=== PATIENT | female | born 2000 | race Caucasian/White ===

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

== ENCOUNTER → 2023-06-11 09:30 | Outpatient (BNVA) | payer OTHER, BC, SELFPAY | PROVIDERS: PCP Nurse Practitioner; Visit Provider Nurse Practitioner Family | DX: R39.9 Unspecified symptoms and signs involving the genitourinary system (principal); E66.01 Morbid (severe) obesity due to excess calories; Z68.54 Body mass index [BMI] pediatric, 95th percentile for age to less than 120% of the 95th percentile for age; Z11.3 Encounter for screening for infections with a predominantly sexual mode of transmission; Z13.6 Encounter for screening for cardiovascular disorders | CPT/HCPCS: 80053; 80061; 81000; 84443; 85025; 86592; 87491; 87591; 87661; 87806 ==

== ENCOUNTER → 2024-04-11 10:36 | Outpatient (BNVA) | payer OTHER, BC, MEDICAID, SELFPAY | PROVIDERS: PCP Nurse Practitioner Family; Visit Provider Nurse Practitioner Family | DX: R05.9 Cough, unspecified (principal); R07.0 Pain in throat | CPT/HCPCS: 87071; 87400; 87880 ==

== ENCOUNTER → 2024-09-22 12:53 | Outpatient (BNVA) | payer OTHER, BC, MEDICAID, SELFPAY | PROVIDERS: PCP Nurse Practitioner Family; Visit Provider Nurse Practitioner Family | DX: R30.0 Dysuria (principal); N39.0 Urinary tract infection, site not specified | CPT/HCPCS: 81000; 81003; 87086 ==

== ENCOUNTER → 2024-10-21 13:32 | Outpatient (BNVA) | payer OTHER, BC, MEDICAID, SELFPAY | PROVIDERS: PCP Nurse Practitioner Family; Visit Provider Nurse Practitioner Family | DX: R10.9 Unspecified abdominal pain (principal) | CPT/HCPCS: 81000; 81025 ==

== ENCOUNTER 2024-10-31 08:40 | Outpatient (CLI) | payer OTHER, BC, MEDICAID, SELFPAY ==
[2024-10-31] MEDS: iohexol 350 mg/mL 500 mL Btl (per mL) PO (09:51)
--- NOTE | 2024-10-31 10:00 | CT_ITS ---
WS: [id number] CT ABDOMEN AND PELVIS WITH CONTRAST HISTORY: R10.31 - Right lower quadrant pain TECHNIQUE: Imaging performed of the abdomen and pelvis with IV contrast. Single phase imaging of the abdomen. Coronal and sagittal reformats are submitted. All CT scans at [facility] use at [address] one of these dose optimization techniques: automated exposure control; mA and/or kV adjustment per patient size (includes targeted exams where dose is matched to clinical indication); or iterative re construction. IV CONTRAST: Omnipaque 350; 100 mL IV. Oral contrast: Yes DLP: 739.65 mGy.cm COMPARISON: None available. Lower thorax: Lung bases are clear. Heart is normal size. Small hiatal hernia. Liver/biliary system: Normal size with no intrahepatic dilatation. Gallbladder: Normal. No gallstones or wall thickening. No pericholecystic fluid. Pancreas: Normal size pancreas and pancreatic duct. No adjacent inflammation. Spleen: Normal size spleen. No mass or infarct. Adrenal glands: Normal. Right kidney: Normal size kidney. Nonobstructing 4 mm calcification superior pole. Left kidney: Normal size kidney. No mass or calcification. Aorta: Normal. Lymphadenopathy: None. Free fluid: None. GI tract: Normal stomach. No small bowel obstruction. Normal appendix. No acute diverticulitis. Abdominal wall: Unremarkable abdominal wall. No hernia. Pelvis: No free fluid or adenopathy within the pelvis. Uterus is midline. Both ovaries are identified and normal by ultrasound. Bones: Unremarkable. CT/CT abdomen pelvis w con* [id number] IMPRESSION: 1. No acute abdominal pelvic abnormalities. 2. No appendicitis. 3. No free air or ascites. 4. No renal obstruction.
[2024-10-31] MEDS: iohexol 350 mg/mL 500 mL Btl (per mL) IV (10:13)
== END 2024-10-31 08:41 | disposition home or self-care (01) ==
LOC: RAD 08:41
PROVIDERS: PCP Nurse Practitioner Family; Visit Provider Nurse Practitioner Family
DX: N20.0 Calculus of kidney (principal); K44.9 Diaphragmatic hernia without obstruction or gangrene; R10.31 Right lower quadrant pain
CPT/HCPCS: 74177; 81000; 81025

== ENCOUNTER → 2025-09-27 14:48 | Outpatient (BNVA) | payer OTHER, BC, MEDICAID, SELFPAY | PROVIDERS: PCP Nurse Practitioner Family; Visit Provider Nurse Practitioner Family | DX: R59.0 Localized enlarged lymph nodes (principal) | CPT/HCPCS: 80053; 85025 ==

== ENCOUNTER 2025-10-06 15:46 | Outpatient (CLI) | payer OTHER, BC, MEDICAID, SELFPAY ==
--- NOTE | 2025-10-06 16:30 | USR_ITS ---
PROCEDURE INFORMATION: Exam: US Right Limited Joint or Other Non-Vascular Extremity Structure Exam date and time: 10/06/2025 3:51 PM Age: 24 years old Clinical indication: Mass or lump; Arm, Upper; Right; Additional Info: R59.1 - Generalized enlarged lymph nodes; lump in right axilla x2 weeks, course of antibiotics. No history of cancer. TECHNIQUE: Imaging protocol: US right limited joint or other nonvascular extremity structure. Real-time ultrasound with image documentation. Exam focused on the area of clinical interest. COMPARISON: No relevant prior studies available. FINDINGS: Limitations: Examination performed in region identified by the patient in the right axillary area. Left axillary region also examined. Soft tissues: Focal subcutaneous hypoechoic nodular mass compatible in appearance with lymph node measuring 8 x 4 x 13 mm, wider than tall, perhaps minimally hypervascular. A moderately deeper axillary lymph node measuring 20 x 18 x 26 mm. This is not particularly hypervascular although somewhat more Iso to hyperechoic. Lymph nodes: Focal hyperechoic fatty lymph node in the left axilla measuring 31 x 10 x 21 mm. US/US soft tissue/extremity [id number] IMPRESSION: A few bilateral hypoechoic to isoechoic nodules in the axillary regions compatible in echo appearance with normal lymph nodes. Question of some mild hypervascularity on the right side which could suggest a slight lymphadenitis. No evidence of abscess or dominant suspicious mass.
== END 2025-10-06 15:47 | disposition home or self-care (01) ==
LOC: RAD 15:47
PROVIDERS: PCP Nurse Practitioner Family; Visit Provider Nurse Practitioner Family
DX: R59.1 Generalized enlarged lymph nodes (principal); R93.89 Abnormal findings on diagnostic imaging of other specified body structures
CPT/HCPCS: 76882